=== PATIENT | female | born 1935 | race Caucasian/White ===

== ENCOUNTER 2016-06-17 07:37 | Emergency (ER) | payer MEDICARE, BC ==
[~2016-06-17] VITALS: Ht 167.6 cm; Wt 59.0 kg
[~2016-06-17 07:37] MED LIST: ASPIRIN EC81 MG PO; COZAAR25 MG PO; LIPITOR10 MG PO; NORVASC5 MG PO; TOPROL XL100 MG PO; VIBRAMYCIN100 MG PO; ZOLOFT25 MG PO
[2016-06-17] MEDS ORDERED: TOPROL XL50 MG PO (09:25)
[2016-06-17] MEDS ORDERED: ZOLOFT50 MG PO (09:31)
[2016-06-17] MEDS ORDERED: SYNTHROID50 MCG PO (09:32)
[2016-06-17] MEDS ORDERED: XANAX0.5 MG PO (09:33)
== END 2016-06-17 17:45 | disposition short-term general hospital (02) ==
LOC: ER 07:37
DX: R07.9 Chest pain, unspecified (principal); F41.9 Anxiety disorder, unspecified; E78.5 Hyperlipidemia, unspecified; I10 Essential (primary) hypertension; F32.9 Major depressive disorder, single episode, unspecified; M10.9 Gout, unspecified; Z90.49 Acquired absence of other specified parts of digestive tract; Z79.82 Long term (current) use of aspirin; Z79.899 Other long term (current) drug therapy; Z88.8 Allergy status to other drugs, medicaments and biological substances; Z88.2 Allergy status to sulfonamides
CPT/HCPCS: A9270; J1885; J2060; J2270; Q9967